=== PATIENT | male | born 1950 | race Caucasian/White ===

== ENCOUNTER → 2020-12-02 09:12 | Outpatient (BNVA) | payer MEDICARE, OTHER, SELFPAY | PROVIDERS: PCP Family Medicine; Visit Provider Urology | DX: N40.1 Benign prostatic hyperplasia with lower urinary tract symptoms (principal); N13.8 Other obstructive and reflux uropathy | CPT/HCPCS: Q3014 ==

== ENCOUNTER → 2021-12-03 08:20 | Outpatient (BNVA) | payer MEDICARE, OTHER, SELFPAY | PROVIDERS: PCP Family Medicine; Visit Provider Urology | DX: N40.1 Benign prostatic hyperplasia with lower urinary tract symptoms (principal); N13.8 Other obstructive and reflux uropathy; R39.14 Feeling of incomplete bladder emptying; R39.15 Urgency of urination; R35.1 Nocturia | CPT/HCPCS: Q3014 ==

== ENCOUNTER → 2022-12-02 10:39 | Outpatient (BNVA) | payer MEDICARE, OTHER, SELFPAY | PROVIDERS: PCP Family Medicine; Visit Provider Urology | DX: N40.1 Benign prostatic hyperplasia with lower urinary tract symptoms (principal); N13.8 Other obstructive and reflux uropathy | CPT/HCPCS: Q3014 ==

== ENCOUNTER 2023-07-05 07:29 | Outpatient (REF) | payer MEDICARE, OTHER, SELFPAY ==
--- NOTE | ~2023-07-05 | XR_ITS ---
EXAMINATION: XR KNEE, RIGHT CLINICAL INFORMATION: Pain. COMPARISON: None available. TECHNIQUE: Three views of the right knee. FINDINGS: No acute fractures or subluxation. Mild to moderate joint space narrowing and subcortical sclerosis of the medial compartment. No significant marginal osteophytes. No osseous erosions. No abnormal soft tissue calcifications. No joint effusion. XR/XR knee RT 3V IMPRESSION: No acute fractures or subluxation. Mild to moderate degenerative osteoarthritis of the medial compartment.
== END 2023-07-05 07:30 | disposition home or self-care (01) ==
LOC: HO.HOSX 07:29
PROVIDERS: Visit Provider Orthopaedic Surgery
DX: M17.11 Unilateral primary osteoarthritis, right knee (principal)
CPT/HCPCS: 73562; 99212

== ENCOUNTER 2023-07-05 07:58 | Outpatient (AMB) | payer MEDICARE, OTHER, SELFPAY ==
--- NOTE | 2023-07-05 08:08 | MHC.OFFVIS ---
Intake Vital Signs 07/05/23 08:09 Height 5 ft 6 in Weight 150 lb BMI 24.2 Intake Visit Reasons: New Pt - right knee pain Intake Note: Trace is a 73 year old patient whop presents today as a new patient for a evaluation for his right knee pain. The patient describes his pain as aching in nature. He also has intermittent discomfort in his left knee. He has undergone bilateral knee arthroscopic surgeries in the past. He got fairly good relief from those procedure. He has had multiple cortisone injections which gave him minimal relief. He has not had a viscosupplementation injection. He has tried Tylenol and anti-inflammatory medicines which gave him minimal relief. He would like to hold off on further surgery if at all possible. He has done physical therapy exercises which aggravated his pain. Allergies penicillin V Allergy (Unknown, Verified 12/02/22 10:40) childhood Medication List - Last Reconciled 07/05/23 by Tip Valdivia MD albendazole 400 mg PO ONCE albuterol sulfate 90 mcg/actuation 0 mcg inhalation allopurinol 300 mg PO DAILY benzonatate 200 mg PO TID PRN diphenoxylate-atropine 2.5-0.025 mg 2 tabs PO TID lorazepam 1 mg PO BEDTIME meloxicam 7.5 mg PO DAILY olmesartan 20 mg PO DAILY rifaximin 550 mg PO TID [facility] Medical History BPH (benign prostatic hyperplasia) Dysuria GERD (gastroesophageal reflux disease) Nocturia Surgical History History of surgery Physical Exam Vital Signs: BMI result Body Mass Index 24.2 Const Other: Well-nourished well-developed very friendly male awake alert and oriented x3 in no acute distress Extrem Other: Bilateral lower extremity examination shows good capillary refill, no skin lesions noted, normal sensation light touch Right knee examination shows a minimal effusion, mild crepitus with range of motion, tenderness along his medial joint line, negative Salo's test, no instability Results Reviewed Results Reviewed: X-rays of the patient's right knee show mild to moderate diffuse joint space narrowing, no acute bony abnormalities Assessment & Plan Assessment & Plan (1) Arthritis of right knee: Code(s): M17.11 - Unilateral primary osteoarthritis, right knee Plan: Mr. Obrien presents with right knee pain due to degenerative joint disease. I had a lengthy discussion with the patient regarding the treatment options she wishes to hold off surgery for as long as possible. I agree with this plan. He has not gotten good relief from cortisone injections in the past. Thus, I will see whether not his insurance company will cover a viscosupplementation injection for his right knee. I will see him back once the injection is available. If he fails continued non operative treatments we will further discuss the risks and benefits of repeat arthroscopic surgery versus total knee replacement surgery. Feel free to call me at any time should questions regarding his orthopedic management arise. I spent 22 minutes in reviewing the patient's records and imaging studies, seeing the patient and documenting in the medical record. Orders: Orders XR knee RT 3V Today M25.561 - Pain in right knee Coding Level of Care Code Est Pt Level 2 (47310) Diagnoses Arthritis of right knee M17.11
[2023-07-05 08:09] VITALS: BMI 24.2
== END 2023-07-05 08:53 | disposition home or self-care (01) ==
PROVIDERS: PCP Family Medicine; Visit Provider Orthopaedic Surgery
DX: M17.11 Unilateral primary osteoarthritis, right knee (principal)
CPT/HCPCS: 99212